=== PATIENT | female | born 1980 | race Two or more races ===

== ENCOUNTER 2021-03-26 09:08 | Emergency (ER) | payer OTHER ==
[~2021-03-26] VITALS: Ht 157.5 cm; Wt 78.6 kg
[2021-03-26 09:08] VITALS: BP 134/74
[2021-03-26] MEDS ORDERED: ADV250INH INH (09:20)
[2021-03-26] MEDS ORDERED: PREN200C PO (09:20)
[2021-03-26 10:19] LABS: HEMOGLOBIN 12.8 g/dl (12.0-15.5); MEAN CORPUSCULAR HEMOGLOBIN 28.5 pg (27.0-33.0); MEAN CORPUSCULAR VOLUME 89.1 fl (80.0-96.0); PLATELET COUNT, AUTOMATED 332 10^3/uL (150-450); RED BLOOD COUNT 4.49 10^6/uL (4.00-5.40); WHITE BLOOD COUNT 6.4 10^3/uL (4.0-10.0)
--- NOTE | 2021-03-26 10:58 | REP ---
INDICATION: VB/pain. COMPARISON: None. TECHNIQUE: Transabdominal and transvaginal scanning or performed. FINDINGS: Uterine dimensions are normal at 7.0 x 5.4 x 4.3 cm. Transabdominal images raise the question of a 3 x 3 x 3 cm slightly hypoechoic area to the left of midline in the uterus which may be a fibroid. There is an intrauterine gestational sac containing a yolk sac and embryonic pole. Embryonic pole is 4.9 mm in crown-rump length which corresponds with a gestational age estimate is 6 weeks 2 days. However, of concern is the fact that we are not able to document cardiac activity including on transvaginal sonography intrauterine demise must be suspected. No free fluid is seen in the cul-de-sac. The right ovary measures 3.1 x 1.6 x 2.3 cm. Left ovarian dimensions are 4.3 x 1.8 x 3.1 cm. The left ovary contains a hypoechoic complex cystic area measuring 2.8 x 1.6 x 2.6 cm. IMPRESSION: Single intrauterine gestation at 6 weeks 2 days size by crown-rump length. No motion or cardiac motion is observed and intrauterine demise must be suspected. Clinical and possibly sonographic follow-up suggested. Question 3 cm lower uterine segment fibroid to the left of midline. 2.8 cm corpus luteum cyst on the left ovary. <Electronically signed by Leo Silverio > 03/26/21 [id number]
[2021-03-26 11:03] LABS: APPEARANCE, URINE CLEAR (CLEAR); BACTERIA, URINE AUTO 1+ (NEGATIVE); BILIRUBIN, URINE AUTO NEGATIVE (NEGATIVE); BLOOD, URINE BLOOD 1+ (NEGATIVE); COLOR, URINE STRAW (YELLOW); GLUCOSE, URINE (UA) AUTO NEGATIVE (NEGATIVE); KETONE, URINE AUTO NEGATIVE (NEGATIVE); LEUKOCYTE ESTERASE, URINE AUTO NEGATIVE (NEGATIVE); NITRITE, URINE AUTO NEGATIVE (NEGATIVE); PROTEIN, URINE AUTO NEGATIVE (NEGATIVE); RBC, URINE AUTO 0 /HPF (0-3); SPECIFIC GRAVITY URINE AUTO 1.003 (1.002-1.035); SQUAMOUS EPITHELIAL CELL UR AU 0 /HPF (0-6); UROBILINOGEN, URINE AUTO 0.2 mg/dL (0.0-2.0); WBC, URINE AUTO 0 /HPF (0-3)
[2021-03-26] MEDS ORDERED: CEPH500C PO (11:27)
== END 2021-03-26 11:54 | disposition home or self-care (01) ==
LOC: M ED 09:08
DX: O26.859 Spotting complicating pregnancy, unspecified trimester (principal); Z3A.01 Less than 8 weeks gestation of pregnancy

== ENCOUNTER 2022-03-04 11:28 | Outpatient (CLI) | payer OTHER ==
[~2022-03-04] VITALS: Ht 157.5 cm; Wt 80.9 kg
[~2022-03-04 11:28] MED LIST: ADV250INH INH; CEPH500C PO; PREN200C PO
[2022-03-04 11:30] VITALS: BP 117/73
[2022-03-04 12:03] LABS: HEMATOCRIT 35.1 % (36.0-47.0); HEMOGLOBIN 11.5 g/dl (12.0-15.5); MEAN CORPUSCULAR HEMOGLOBIN 29.2 pg (27.0-33.0); MEAN CORPUSCULAR HGB CONC 32.8 g/dl (32.0-36.5); MEAN CORPUSCULAR VOLUME 89.1 fl (80.0-96.0); PLATELET COUNT, AUTOMATED 237 10^3/uL (150-450); RED BLOOD COUNT 3.94 10^6/uL (4.00-5.40); WHITE BLOOD COUNT 9.8 10^3/uL (4.0-10.0)
[2022-03-04 12:14] LABS: INR 0.98; PROTHROMBIN TIME 13.4 SECONDS (12.7-14.5)
[2022-03-04 12:15] LABS: PARTIAL THROMBOPLASTIN TIME 29.4 SECONDS (25.9-37.0)
[2022-03-04 12:28] LABS: ALBUMIN 2.9 GM/DL (3.2-5.2); ALT/SGPT 10 U/L (12-78); BILIRUBIN,TOTAL 0.3 MG/DL (0.2-1.0); BLOOD UREA NITROGEN 7 MG/DL (7-18); CALCIUM LEVEL 8.3 MG/DL (8.5-10.1); CARBON DIOXIDE LEVEL 25 MEQ/L (21-32); CHLORIDE LEVEL 109 MEQ/L (98-107); CREATININE FOR GFR 0.45 MG/DL (0.55-1.30); GLOMERULAR FILTRATION RATE > 60.0 (>58); GLUCOSE, FASTING 103 MG/DL (70-100); POTASSIUM SERUM 3.7 MEQ/L (3.5-5.1); SODIUM LEVEL 139 MEQ/L (136-145)
[2022-03-04] MEDS ORDERED: ACET325C5 PO (13:53)
[2022-03-04] MEDS ORDERED: LORA-674 PO (13:53)
[2022-03-04] MEDS ORDERED: ALBU83IN INH (13:53)
[2022-03-04] MEDS ORDERED: HOME MED LIST COMPLETE! XX SCH (13:55)
[2022-03-04] MEDS: BETAMETHASONE SOLUSPAN 6MG/ML 5ML VIAL (J0702 PER 3MG) IM SCH (14:01)
[2022-03-04 14:03] VITALS: BP 122/77
[2022-03-04 19:08] VITALS: BP 114/66
[2022-03-05 00:38] VITALS: BP 118/67
[2022-03-05 07:14] VITALS: BP 104/57
[2022-03-05 12:19] VITALS: BP 97/51
[2022-03-05 13:21] VITALS: BP 95/51
[2022-03-05] MEDS: BETAMETHASONE SOLUSPAN 6MG/ML 5ML VIAL (J0702 PER 3MG) IM SCH (13:49)
[2022-03-05 14:08] VITALS: BP 121/67
== END 2022-03-05 14:11 | disposition home or self-care (01) ==
LOC: M LDO 11:28
PROVIDERS: ATTEND Obstetrics & Gynecology
DX: O46.93 Antepartum hemorrhage, unspecified, third trimester (principal); Z3A.32 32 weeks gestation of pregnancy; O09.523 Supervision of elderly multigravida, third trimester
CPT/HCPCS: 36415; 59025; 59412; 76815; 80053; 85027; 85384; 85610; 85730; 96372; G0378; G0463; J0702

== ENCOUNTER 2022-04-21 17:45 | Inpatient (IN) | payer OTHER ==
[~2022-04-21] VITALS: Ht 157.5 cm; Wt 82.1 kg
[~2022-04-21 17:45] MED LIST changes: +ACET325C5 PO; +ALBU2.5V10 INH; +LORA-674 PO
[2022-04-21 18:05] VITALS: BP 113/72
[2022-04-21] MEDS ORDERED: HOME MED LIST COMPLETE! XX SCH (18:10)
[2022-04-21 18:58] LABS: HEMATOCRIT 36.4 % (36.0-47.0); HEMOGLOBIN 12.3 g/dl (12.0-15.5); MEAN CORPUSCULAR HGB CONC 33.8 g/dl (32.0-36.5); MEAN CORPUSCULAR VOLUME 88.8 fl (80.0-96.0); PLATELET COUNT, AUTOMATED 269 10^3/uL (150-450); WHITE BLOOD COUNT 10.3 10^3/uL (4.0-10.0)
[2022-04-21 21:02] VITALS: BP 126/77
[2022-04-21] MEDS ORDERED: LIDOCAINE 1% MDV 20ML VIAL INFIL PRN (21:15)
[2022-04-21] MEDS ORDERED: LR 1,000 ML IV SCH (21:15)
[2022-04-21] MEDS ORDERED: OXYTOCIN DRIP 30 UNITS in IV 1 EA IV SCH (21:15)
[2022-04-21] MEDS ORDERED: OXYTOCIN DRIP 30 UNITS in IV 1 EA IV PRN ×4 (21:15)
[2022-04-21] MEDS: miSOPROStol 25MCG 1/4 TABLET PO SCH (21:42)
[2022-04-21 21:44] VITALS: BP 117/66
[2022-04-21 22:51] VITALS: BP 101/57
[2022-04-21 23:44] VITALS: BP 100/56
[2022-04-22] VITALS (9 sets, daily range): BP systolic 105–130; BP diastolic 57–86
[2022-04-22] MEDS ORDERED: miSOPROStol 50MCG 1/2 TABLET PO ONE (01:40)
[2022-04-22] MEDS: miSOPROStol 25MCG 1/4 TABLET PO SCH (01:45)
[2022-04-22] MEDS ORDERED: FENTANYL 2MCG/ML ROPIVACAINE 0.2% IN 0.9% NACL 100ML IVBAG As Ordered ONE (07:13)
[2022-04-22] MEDS ORDERED: OXYTOCIN 30 UNITS IN 0.9% NaCl 500ML IV BAG (J2590) As Ordered ONE (07:13)
[2022-04-22] MEDS: ADVAIR HFA 115/21MCG INHALER INH SCH ×2 (08:00→19:57)
[2022-04-22 08:05] LABS: CORD GAS ABE A -7.6; CORD GAS HCO3 A 21.2 MEQ/L; CORD GAS O2 SAT A 71.3 %; CORD GAS PCO2 A 54.6 mmHg; CORD GAS PH A 7.208 UNITS; CORD GAS PO2 A 34.5 mmHg; CORD GAS SBC A 17.9 MEQ/L; CORD GAS TCO2 A 22.9 MEQ/L
[2022-04-22 08:06] LABS: CORD GAS ABE V -2.7; CORD GAS HCO3 V 22.4 MEQ/L; CORD GAS O2 SAT V 67.3 %; CORD GAS PCO2 V 40.4 mmHg; CORD GAS PH V 7.362 UNITS; CORD GAS PO2 V 27.6 mmHg; CORD GAS SBC V 21.3 MEQ/L; CORD GAS TCO2 V 23.7 MEQ/L
[2022-04-22] MEDS: PRENATAL VITAMINS CHEWABLE TABLET PO SCH (09:00)
[2022-04-22] MEDS: LORATADINE 10 MG TAB PO SCH (09:00)
[2022-04-22] MEDS: LR 1,000 ML IV SCH ×2 (09:55→17:55)
[2022-04-22] MEDS ORDERED: DIBUCAINE 1% OINTMENT 30GM TOP PRN (09:55)
[2022-04-22] MEDS ORDERED: OXYTOCIN DRIP 30 UNITS in IV 1 EA IV SCH (09:55)
[2022-04-22] MEDS ORDERED: ONDANSETRON 4MG 2ML VIAL IV PRN (09:55)
[2022-04-22] MEDS ORDERED: PROMETHAZINE 25 MG TAB PO PRN (09:55)
[2022-04-22] MEDS ORDERED: DOCUSATE SODIUM 100MG CAPSULE PO PRN (09:55)
[2022-04-22] MEDS ORDERED: ALBUTEROL SULFATE 2.5 MG/0.5 ML INH NEB SOLN INH PRN (09:55)
[2022-04-22] MEDS ORDERED: RHOGAM 300 MCG (1500 IU) INJ (J2790) IM SCH (09:55)
[2022-04-22] MEDS: ACETAMINOPHEN 500 MG TAB PO SCH ×3 (11:00→22:36)
[2022-04-22] MEDS: IBUPROFEN 800 MG TAB PO SCH ×2 (11:07→19:57)
[2022-04-23] MEDS: IBUPROFEN 800 MG TAB PO SCH ×2 (03:05→10:40)
[2022-04-23] MEDS: ACETAMINOPHEN 500 MG TAB PO SCH ×3 (05:10→16:49)
[2022-04-23 05:24] VITALS: BP 107/64
[2022-04-23] MEDS ORDERED: IBUP80TA PO (06:11)
[2022-04-23] MEDS ORDERED: PRENCHW PO (06:11)
[2022-04-23] MEDS ORDERED: COLA100C5 PO (06:11)
[2022-04-23] MEDS ORDERED: ACET-683 PO (06:11)
[2022-04-23 06:56] LABS: MEAN CORPUSCULAR HEMOGLOBIN 29.9 pg (27.0-33.0); MEAN CORPUSCULAR HGB CONC 32.9 g/dl (32.0-36.5); MEAN CORPUSCULAR VOLUME 90.9 fl (80.0-96.0); PLATELET COUNT, AUTOMATED 227 10^3/uL (150-450); RED BLOOD COUNT 3.41 10^6/uL (4.00-5.40); WHITE BLOOD COUNT 12.3 10^3/uL (4.0-10.0)
[2022-04-23 07:03] LABS: HEMOGLOBIN 10.2 g/dl (12.0-15.5)
[2022-04-23] MEDS: PRENATAL VITAMINS CHEWABLE TABLET PO SCH (07:44)
[2022-04-23] MEDS: LORATADINE 10 MG TAB PO SCH (07:44)
[2022-04-23] MEDS: ADVAIR HFA 115/21MCG INHALER INH SCH (08:00)
[2022-04-24] MEDS ORDERED: MEASLES,MUMPS,RUBELLA VACCINE INJ (MMR-II) (90707) SC.IMMUN ONE (09:00)
== END 2022-04-23 18:10 | disposition home or self-care (01) | DRG 807 ==
LOC: M LDI 17:45 → M OBS 04-22 11:01
PROVIDERS: ADMIT Obstetrics & Gynecology; ATTEND Obstetrics & Gynecology
PROC: 3E0P3VZ Introduction of Hormone into Female Reproductive, Percutaneous Approach (ICD-10-PCS; 2022-04-21)
PROC: 10E0XZZ Delivery of Products of Conception, External Approach (ICD-10-PCS; principal; 2022-04-22)
PROC: 0KQM0ZZ Repair Perineum Muscle, Open Approach (ICD-10-PCS; 2022-04-22)
DX: O70.1 Second degree perineal laceration during delivery (principal); Z37.0 Single live birth; Z3A.39 39 weeks gestation of pregnancy; O09.523 Supervision of elderly multigravida, third trimester; Z86.16 Personal history of COVID-19

== ENCOUNTER → 2022-08-17 | Outpatient (REF) ==
[~2022-08-17] MED LIST changes: +ACET-683 PO; +COLA100C5 PO; +IBUP80TA PO; +PRENCHW PO
== END ==
LOC: M EMP 09:56
PROVIDERS: ATTEND Family Medicine
DX: Z11.52 Encounter for screening for COVID-19 (principal)

== ENCOUNTER → 2022-08-20 | Outpatient (REF) ==
[2022-08-20 13:23] LABS: RSV AMPLIFICATION NEGATIVE (NEGATIVE)
== END ==
LOC: M LABSMTC 11:25
PROVIDERS: ATTEND Family Medicine
DX: Z11.52 Encounter for screening for COVID-19 (principal)

== ENCOUNTER 2022-12-11 08:23 | Emergency (ER) | payer OTHER ==
[~2022-12-11] VITALS: Ht 157.5 cm; Wt 78.7 kg
[2022-12-11] MEDS ORDERED: predniSONE 20 MG TAB PO ONE (10:10)
[2022-12-11] MEDS ORDERED: NEBU1EAC78 MC (11:23)
[2022-12-11] MEDS ORDERED: ALBU2.5V10 NEB (11:23)
[2022-12-11] MEDS ORDERED: PRED20TA PO (11:23)
[2022-12-11 11:38] VITALS: BP 110/76
== END 2022-12-11 11:39 | disposition home or self-care (01) ==
LOC: M ED 08:23
DX: J45.901 Unspecified asthma with (acute) exacerbation (principal); Z79.52 Long term (current) use of systemic steroids; Z79.810 Long term (current) use of selective estrogen receptor modulators (SERMs); Z79.899 Other long term (current) drug therapy
CPT/HCPCS: 71046; 87486; 87581; 87633; 87798; 93005; 99284; J7512

== ENCOUNTER → 2023-03-13 | Outpatient (REF) ==
[~2023-03-13] MED LIST changes: +ALBU2.5V10 NEB; +NEBU1EAC78 MC; +PRED20TA PO
== END ==
LOC: M EMP 08:18
PROVIDERS: ATTEND Family Medicine
DX: Z11.52 Encounter for screening for COVID-19 (principal)

== ENCOUNTER → 2023-03-27 | Outpatient (REF) | LOC: M EMP 15:42 | PROVIDERS: ATTEND Family Medicine | DX: Z11.52 Encounter for screening for COVID-19 (principal) ==

== ENCOUNTER → 2023-11-25 | Outpatient (CLI) | payer OTHER ==
[~2023-11-25] MED LIST changes: +LORA-1041 PO; -LORA-674 PO
== END ==
LOC: M CARPUL 11:41
PROVIDERS: ATTEND Internal Medicine
DX: R01.1 Cardiac murmur, unspecified (principal)

== ENCOUNTER → 2024-04-23 | Outpatient (CLI) | payer OTHER | LOC: M CARPUL 04-22 10:50 | PROVIDERS: ATTEND Internal Medicine | DX: J45.20 Mild intermittent asthma, uncomplicated (principal) ==

== ENCOUNTER → 2024-09-08 | Outpatient (CLI) | payer OTHER ==
[~2024-09-08] MED LIST changes: +METHACHOLINE KIT (6 VIAL.NEB PREMIX) INH ONE
== END ==
LOC: M CARPUL 14:49
PROVIDERS: ATTEND Internal Medicine Pulmonary Disease
DX: R05.9 Cough, unspecified (principal)
CPT/HCPCS: 94070; J7674

== ENCOUNTER → 2024-09-23 | Outpatient (CLI) | payer OTHER ==
[~2024-09-23] MED LIST changes: -ADV250INH INH; +ADVA1AER9 INH; -METHACHOLINE KIT (6 VIAL.NEB PREMIX) INH ONE; +PROHANCE 279.3MG/ML 15ML VIAL As Ordered ONE
== END ==
LOC: M RAD 13:11
PROVIDERS: ATTEND Student in an Organized Health Care Education/Training Program
DX: D17.72 Benign lipomatous neoplasm of other genitourinary organ (principal)